=== PATIENT | female | born 1950 | race Caucasian/White ===

== ENCOUNTER → 2017-01-03 | Outpatient (CLI) | payer MEDICARE, OTHER ==
--- NOTE | 2017-01-04 16:37 | RAD ---
DATE: 01/03/17 EXAM: MAMMO PAULIE SCREENING BILATERAL HISTORY: Routine screening COMPARISON: 07/16/15 This study was interpreted with the benefit of Computerized Aided Detection (CAD). TECHNIQUE: Routine 2-D and 3-D screening mammogram of both breasts are obtained. FINDINGS: Breast Density: FATTY The breast parenchyma is primarily fatty replaced. Breast parenchyma level density A.. No suspicious clustered microcalcifications, focal asymmetric densities or masses are seen Skin and nipples are intact IMPRESSION: Negative exam BI-RADS CATEGORY: 1 NEGATIVE RECOMMENDED FOLLOW-UP: 12M 12 MONTH FOLLOW-UP PQRS compliance statement: Patient information was entered into a reminder system with a target due date for the next mammogram. Mammography is a sensitive method for finding small breast cancers, but it does not detect them all and is not a substitute for careful clinical examination. A negative mammogram does not negate a clinically suspicious finding and should not result in delay in biopsying a clinically suspicious abnormality. "Our facility is accredited by the [employer] Mammography Program."
== END | disposition home or self-care (01) ==
LOC: MAMMO 15:45
PROVIDERS: ATTEND Family Medicine
DX: Z12.31 Encounter for screening mammogram for malignant neoplasm of breast (principal)
CPT/HCPCS: 77063; G0202; 77067

== ENCOUNTER → 2017-01-20 | Day surgery (SDC) | payer MEDICARE, OTHER ==
[~2017-01-20] MED LIST: IV RINGERS SOLUTION,LACTATED 1,000 ML IV ONE; LIDOCAINE 2% PF Vial for OR 5 ML VIAL. ONE; PROPOFOL 40 ML IV ONE
== END | disposition home or self-care (01) ==
LOC: SURG 13:27
PROVIDERS: ATTEND Internal Medicine Gastroenterology
DX: Z12.11 Encounter for screening for malignant neoplasm of colon (principal); K57.30 Diverticulosis of large intestine without perforation or abscess without bleeding; K64.8 Other hemorrhoids; K63.89 Other specified diseases of intestine; M19.91 Primary osteoarthritis, unspecified site; Z88.6 Allergy status to analgesic agent; Z96.642 Presence of left artificial hip joint
CPT/HCPCS: 45378; J2704; J7120; J3010; J2001

== ENCOUNTER → 2018-01-04 | Outpatient (CLI) | payer MEDICARE, OTHER ==
--- NOTE | 2018-01-04 14:10 | RAD ---
DATE: 01/04/2018: EXAM: MAMMO PAULIE SCREENING BILATERAL HISTORY: Routine screening COMPARISON: 01/03/2017 This study was interpreted with the benefit of Computerized Aided Detection (CAD). Breast Density: FATTY The breast parenchyma is primarily fatty replaced. Breast parenchyma level density A. FINDINGS: 2-D and 3-D tomosynthesis imaging was performed in CC and MLO projections. No new or enlarging breast densities are seen. Minimal benign type calcification is present. No suspicious microcalcifications have developed. IMPRESSION: Stable mammograms without evidence of malignancy. BI-RADS CATEGORY: 2 BENIGN FINDING(S) RECOMMENDED FOLLOW-UP: 12M 12 MONTH FOLLOW-UP PQRS compliance statement: Patient information was entered into a reminder system with a target due date for the next mammogram. Mammography is a sensitive method for finding small breast cancers, but it does not detect them all and is not a substitute for careful clinical examination. A negative mammogram does not negate a clinically suspicious finding and should not result in delay in biopsying a clinically suspicious abnormality. "Our facility is accredited by the [employer] Mammography Program."
== END | disposition home or self-care (01) ==
LOC: MAMMO 11:31
PROVIDERS: ATTEND Nurse Practitioner Family
DX: Z12.31 Encounter for screening mammogram for malignant neoplasm of breast (principal)
CPT/HCPCS: 77063; 77067

== ENCOUNTER → 2018-12-26 | Outpatient (CLI) | payer MEDICARE, OTHER ==
--- NOTE | 2018-12-26 16:04 | RAD ---
Examination: CT CHEST WO CONTRAST History: Productive cough, chest discomfort, smoker for 32 years Comparison/Correlation: None Findings: Axial images of the chest were obtained without contrast. Sagittal and coronal reformatted images were provided. Surgical clips in the right supraclavicular region are present. No enlarged thoracic lymph nodes. Bulla is noted adjacent to the minor fissure within the right upper lobe laterally. Smaller bullae also are seen. Anterior right apical 0.6 cm x 0.4 cm x 0.6 cm longitudinal noncalcified nodule is present. Punctate satellite nodules suggested inferolaterally to it is noted. Nonspecific diffuse interstitial thickening of the lung you is noted. Minimal linear atelectasis at the lung bases is evident. At the thoracic inlet level, right paratracheal air cysts are noted. No enlarged thoracic lymph nodes. No pleural or pericardial effusion. Suture material is identified involving the proximal stomach. No acute bony process. Degenerative disc space narrowing of the very low thoracic spine noted. Impression: Right apical noncalcified nodules. Six-month follow-up is recommended to assess stability by CT. No infiltrate. PQRS Compliance Statement: One or more of the following individualized dose reduction techniques were utilized for this examination: 1. Automated exposure control 2. Adjustment of the mA and/or kV according to patient size 3. Use of iterative reconstruction technique Electronically signed by: Kole Rios MD (12/26/2018 4:00 PM) [facility]
== END | disposition home or self-care (01) ==
LOC: CT 13:11
PROVIDERS: ATTEND Family Medicine
DX: R91.8 Other nonspecific abnormal finding of lung field (principal); M48.04 Spinal stenosis, thoracic region; M51.34 Other intervertebral disc degeneration, thoracic region; J98.11 Atelectasis; J98.4 Other disorders of lung; J43.8 Other emphysema; Z87.891 Personal history of nicotine dependence
CPT/HCPCS: 71250

== ENCOUNTER → 2019-02-09 | Outpatient (CLI) | payer MEDICARE, OTHER ==
--- NOTE | 2019-02-09 15:51 | RAD ---
DATE: 02/09/2019 EXAM: MAMMO PAULIE SCREENING BILATERAL HISTORY: Routine screening COMPARISON: 01/04/2018, 01/03/2017 mammographic exams This study was interpreted with the benefit of Computerized Aided Detection (CAD). Breast Density: SCATTERED The breast parenchyma shows scattered fibroglandular densities. Breast parenchyma level B. FINDINGS: No suspicious calcification, mass, or distortion. IMPRESSION: Stable BI-RADS CATEGORY: 1 NEGATIVE RECOMMENDED FOLLOW-UP: 12M 12 MONTH FOLLOW-UP PQRS compliance statement: Patient information was entered into a reminder system with a target due date for the next mammogram. Mammography is a sensitive method for finding small breast cancers, but it does not detect them all and is not a substitute for careful clinical examination. A negative mammogram does not negate a clinically suspicious finding and should not result in delay in biopsying a clinically suspicious abnormality. "Our facility is accredited by the [employer] Mammography Program."
== END | disposition home or self-care (01) ==
LOC: MAMMO 11:17
PROVIDERS: ATTEND Family Medicine
DX: Z12.31 Encounter for screening mammogram for malignant neoplasm of breast (principal)
CPT/HCPCS: 77063; 77067

== ENCOUNTER → 2020-02-19 | Outpatient (CLI) | payer MEDICARE, OTHER ==
--- NOTE | 2020-02-20 11:28 | RAD ---
DATE: 02/19/2020 2:14 PM EXAM: MAMMO PAULIE SCREENING BILATERAL HISTORY: Screening COMPARISON: 02/09/2019 Bilateral CC and MLO views of the breasts were performed. Bilateral breast tomosynthesis was performed in CC and MLO projections. This study was interpreted with the benefit of Computerized Aided Detection (CAD). FINDINGS: Breast Density: FATTY The Breast Parenchyma is primarily fatty replaced. Breast parenchyma level density A. No suspicious masses, microcalcifications or architectural distortion is present to suggest malignancy in either breast. The visualized axillae are unremarkable. IMPRESSION: No mammographic evidence of malignancy. BI-RADS CATEGORY: 1 NEGATIVE RECOMMENDED FOLLOW-UP: 12M 12 MONTH FOLLOW-UP Annual screening mammography is recommended, unless clinically indicated sooner based on symptoms or change in physical exam. PQRS compliance statement: Patient information was entered into a reminder system with a target due date for the next mammogram. Mammography is a sensitive method for finding small breast cancers, but it does not detect them all and is not a substitute for careful clinical examination. A negative mammogram does not negate a clinically suspicious finding and should not result in delay in biopsying a clinically suspicious abnormality. "Our facility is accredited by the [employer] Mammography Program."
== END ==
LOC: MAMMO 13:35
PROVIDERS: ATTEND Family Medicine
DX: Z12.31 Encounter for screening mammogram for malignant neoplasm of breast (principal)
CPT/HCPCS: 77063; 77067

== ENCOUNTER → 2020-11-11 | Outpatient (CLI) | payer MEDICARE, OTHER ==
--- NOTE | 2020-11-11 16:29 | RAD ---
INDICATION: Screening for osteopenia/osteoporosis. Reason: SCREENING FOR OSTEOPOROSIS / Spl. Instruc tions: / History: . Postmenopausal evaluation COMPARISON: 01/21/2015 TECHNIQUE: Bone densitometry was performed through the lumbar spine and proximal femur. IMPRESSION: Lumbar Spine: BMD: 0.98 T-Score: -1.6 Range: Osteopenic. Increased by 6 percent from prior Proximal Femur: BMD: 0.56 T-Score: -3.0 Range: Osteoporotic. Increased by 3 percent from prior. World Health Organization Criteria for Bone Density: T-Score: > -1.0: Normal Range < -1.0 to -2.5: Osteopenic Range < -2.5: Osteoporotic Range Electronically signed by: Antony Gan MD (11/11/2020 4:27 PM) [id number]
== END ==
LOC: DXRAD 12:53
PROVIDERS: ATTEND Family Medicine
DX: M81.0 Age-related osteoporosis without current pathological fracture (principal)
CPT/HCPCS: 77080

== ENCOUNTER → 2021-02-26 | Outpatient (CLI) | payer MEDICARE, OTHER ==
--- NOTE | 2021-02-26 16:13 | RAD ---
Bilateral digital screening 2-D and 3-D (digital breast tomosynthesis) mammogram: Reason for examination: Routine screening. Comparison: Mammograms from 02/19/2020 and 02/09/2019. Interpretation was made with the benefit of CAD. FINDINGS: Breast density: Category A. Breast tissue is almost entirely fatty. No suspicious breast mass, malignant appearing calcifications, or architectural distortion is seen. IMPRESSION: No evidence of malignancy. Assessment: BI-RADS 1. Negative. Recommendation: Routine screening mammograms. The patient will receive a letter with the results in the mail. Patient information will be entered i nto the mammography reminder system with a target recall date for the next mammogram. A reminder dominguez er will be generated. Electronically signed by: Tigist Tsang MD (02/26/2021 4:11 PM) [id number]
== END ==
LOC: MAMMO 11:16
PROVIDERS: ATTEND Family Medicine
DX: Z12.31 Encounter for screening mammogram for malignant neoplasm of breast (principal)
CPT/HCPCS: 77063; 77067